=== PATIENT | male | born 1975 | race Caucasian/White ===

== ENCOUNTER 2024-10-03 12:42 | Inpatient (IN) | payer BC ==
[~2024-10-03 12:42] MED LIST: Iopamidol-370 76% 500 ML MDV (1 ML CHARGE) ONE
[2024-10-03 13:47] LABS: #Basophils Less than 0.03 10x3/uL (0.0-0.2); %Basophils 0.2 % (0.0-1.0); %Eosinophils 1.8 % (0.0-10.0); %Lymphocytes 26.7 % (21.0-51.0); %Monocytes 9.8 % (0.0-10.0); %Neutrophils 60.9 % (42.0-75.0); Hemoglobin 15.9 g/dL (14.0-18.0); Mean Corpuscular HGB CONC 34.6 g/dL (32.0-36.0); Mean Corpuscular Hemoglobin 29.9 pg (27.0-31.0); Mean Corpuscular Volume 86.5 fL (78.0-98.0); Mean Platelet Volume 11.4 fL (7.4-10.4); Platelet Count 199 10x3/uL (130-400); RBC Distribution Width 13.1 % (11.5-14.5); Red Blood Cell (RBC) Count 5.32 mill/uL (4.70-6.10)
[2024-10-03 14:14] LABS: ALT (SGPT) 47 U/L (8-55); AST (SGOT) 25 U/L (5-34); Albumin 3.6 g/dL (3.5-5.0); Alkaline Phosphatase 116 U/L (40-110); Anion Gap 14 mmol/L (10-20); BUN (Urea Nitrogen) 19 mg/dL (8.9-20.6); Bilirubin, Total 0.8 mg/dL (0.2-1.2); Calc. Creatinine Clearance 0 mL/min (70-130); Calcium 9.1 mg/dL (7.8-10.44); Carbon Dioxide 21 mmol/L (22-29); Chloride 105 mmol/L (98-107); Estimated GFR 80; Globulin 4.3 g/dL (2.4-3.5); Glucose 93 mg/dL (70-105); Potassium 4.2 mmol/L (3.5-5.1); Protein, Total 7.9 g/dL (6.0-8.3); Sodium 136 mmol/L (136-145)
[2024-10-03 14:18] LABS: D-Dimer Test 3.42 mcg/mL (0.27-0.43); INR-International Normal Ratio 2.3; PTT 30.9 sec (22.9-36.1); Prothrombin Time 25.1 sec (12.0-14.7)
[2024-10-03] MEDS ORDERED: Enoxaparin 100 MG (1 mL) SYRINGE ONE (16:03)
[2024-10-03] MEDS ORDERED: Enoxaparin 30 MG (0.3 mL) SYRINGE ONE (16:03)
[2024-10-03] MEDS ORDERED: Loperamide HCl 2 MG CAP PO PRN ×2 (16:15)
[2024-10-03] MEDS ORDERED: Ondansetron PF 4 MG/2 ML Vial IVP PRN (16:15)
[2024-10-03] MEDS ORDERED: Ondansetron ODT 4 MG TAB PO PRN (16:15)
[2024-10-03] MEDS ORDERED: traMADol HCl 50 MG TAB PO PRN (16:15)
[2024-10-03 17:18] LABS: Troponin I Less than 0.010 ng/mL (< 0.028)
[2024-10-03] MEDS ORDERED: Zolpidem Tartrate 5 MG TAB PO PRN (17:51)
[2024-10-03 20:39] LABS: Troponin I Less than 0.010 ng/mL (< 0.028)
[2024-10-03 22:36] VITALS: BMI 32.3
[2024-10-03] MEDS ORDERED: Famotidine 20 MG TAB ONE (22:43)
[2024-10-03] MEDS: Famotidine 20 MG TAB PO SCH (22:49)
[2024-10-03] MEDS ORDERED: Sodium Chloride 0.65% Nasal 44 ML BOT EA NARE PRN (22:55)
[2024-10-03] MEDS ORDERED: guaiFENesin ER 600 MG TAB ONE (23:09)
[2024-10-03] MEDS: guaiFENesin/DM ER PO SCH (23:22)
[2024-10-04 03:38] LABS: Hematocrit 45.4 % (42.0-52.0); Hemoglobin 15.1 g/dL (14.0-18.0); Platelet Count 182 10x3/uL (130-400)
[2024-10-04 03:56] LABS: Anion Gap 15 mmol/L (10-20); BUN (Urea Nitrogen) 17 mg/dL (8.9-20.6); Calc. Creatinine Clearance 128 mL/min (70-130); Calcium 8.4 mg/dL (7.8-10.44); Carbon Dioxide 19 mmol/L (22-29); Chloride 107 mmol/L (98-107); Estimated GFR 91; Glucose 81 mg/dL (70-105); Potassium 4.2 mmol/L (3.5-5.1); Sodium 137 mmol/L (136-145)
[2024-10-04] MEDS: Enoxaparin 100 MG (1 mL) SYRINGE SC SCH (06:27)
[2024-10-04] MEDS ORDERED: Electrolyte Replacement Protocol 1 EACH FS SCH (08:20)
[2024-10-04 09:34] LABS: Magnesium 2.1 mg/dL (1.6-2.6)
[2024-10-04] MEDS: BuPROPion XL 150 MG ER.TAB PO SCH (10:22)
[2024-10-04] MEDS: guaiFENesin/DM ER PO SCH (10:23)
[2024-10-04] MEDS: Acetaminophen 325 MG TAB PO PRN (10:24)
[2024-10-04] MEDS ORDERED: hydrALAZINE 25 MG TAB PO PRN (14:42)
[2024-10-04] MEDS: Valsartan 80 MG TAB PO SCH (16:38)
[2024-10-04] MEDS ORDERED: Famotidine 20 MG TAB PO SCH (21:00)
[2024-10-05 04:28] LABS: #Basophils 0.03 10x3/uL (0.0-0.2); %Basophils 0.5 % (0.0-1.0); %Eosinophils 4.1 % (0.0-10.0); %Lymphocytes 36.7 % (21.0-51.0); %Monocytes 12.3 % (0.0-10.0); %Neutrophils 45.9 % (42.0-75.0); Hematocrit 46.4 % (42.0-52.0); Hemoglobin 15.4 g/dL (14.0-18.0); Mean Corpuscular HGB CONC 33.2 g/dL (32.0-36.0); Mean Corpuscular Hemoglobin 29.2 pg (27.0-31.0); Mean Corpuscular Volume 87.9 fL (78.0-98.0); Mean Platelet Volume 11.7 fL (7.4-10.4); Platelet Count 189 10x3/uL (130-400); Red Blood Cell (RBC) Count 5.28 mill/uL (4.70-6.10)
[2024-10-05 04:48] LABS: Anion Gap 12 mmol/L (10-20); BUN (Urea Nitrogen) 14 mg/dL (8.9-20.6); Calc. Creatinine Clearance 120 mL/min (70-130); Calcium 8.9 mg/dL (7.8-10.44); Carbon Dioxide 24 mmol/L (22-29); Chloride 107 mmol/L (98-107); Estimated GFR 84; Glucose 87 mg/dL (70-105); Potassium 4.9 mmol/L (3.5-5.1); Sodium 138 mmol/L (136-145)
[2024-10-05] MEDS: Valsartan 80 MG TAB PO SCH (10:01)
[2024-10-05] MEDS: FLU (Fluarix Triv) TS24-25(6MOS UP)/PF 45 MCG/0.5 ML Syringe IM ONE (10:03)
[2024-10-05] MEDS ORDERED: Ipratropium/Albuterol 3 ML NEB NEB PRN (11:24)
[2024-10-05 12:22] VITALS: BP 146/94; TEMP 98.1
[2024-10-05] MEDS: Ipratropium/Albuterol 3 ML NEB NEB SCH (12:36)
[2024-10-05] MEDS ORDERED: Apixaban 5 MG TAB PO SCH (18:00)
[2024-10-09 12:18] LABS: Cardiolipin IgA Ab 2.9 APL-U/mL (<14 Negative); Cardiolipin IgG Ab 2.1 GPL-U/mL (<10 Negative); Cardiolipin IgM Ab 2.1 MPL-U/mL (<10 Negative); EliA APS New Method **** NEW METHOD ****
== END 2024-10-05 17:10 | disposition home or self-care (01) | DRG 176 ==
LOC: ERS 12:42 → ERHOLD 16:04 → PCU 10-04 05:59
PROVIDERS: ADMIT Internal Medicine; ATTEND Internal Medicine
DX: I26.99 Other pulmonary embolism without acute cor pulmonale (principal); I82.431 Acute embolism and thrombosis of right popliteal vein; E78.5 Hyperlipidemia, unspecified; F41.9 Anxiety disorder, unspecified; F32.A Depression, unspecified; F17.290 Nicotine dependence, other tobacco product, uncomplicated; R00.0 Tachycardia, unspecified; K44.9 Diaphragmatic hernia without obstruction or gangrene; E66.9 Obesity, unspecified; N18.2 Chronic kidney disease, stage 2 (mild); I12.9 Hypertensive chronic kidney disease with stage 1 through stage 4 chronic kidney disease, or unspecified chronic kidney disease; Z79.899 Other long term (current) drug therapy; Z90.89 Acquired absence of other organs; Z98.890 Other specified postprocedural states; Z68.32 Body mass index [BMI] 32.0-32.9, adult
CPT/HCPCS: 36415; 71260; 71275; 74177; 80048; 80053; 83090; 83605; 83735; 83880; 84484; 85014; 85018; 85025; 85049; 85300; 85303; 85306; 85307; 85379; 85598; 85610; 85730; 86147; 86850; 86900; 86901; 87040; 87428; 93005; 93306; 93970; 94640; 96374; J1650; J7620; Q9967